=== PATIENT | male | born 1945 | race Two or more races ===

== ENCOUNTER 2020-11-10 10:22 | Inpatient (IN) | payer OTHER ==
[~2020-11-10] VITALS: Ht 180.3 cm; Wt 104.3 kg
[2020-11-10] MEDS ORDERED: TENORMIN25 MG PO (10:32)
[2020-11-10] MEDS ORDERED: CHILDREN'S ASPI81 MG PO (10:33)
[2020-11-10] MEDS ORDERED: ZYLOPRIM300 MG PO (10:34)
[2020-11-10] MEDS ORDERED: ATORVASTATIN CA40 MG PO (10:34)
[2020-11-10] MEDS ORDERED: LIPOFEN50 MG PO (10:35)
[2020-11-10] MEDS ORDERED: ZESTRIL10 M1 PO (10:35)
== END 2020-11-12 13:25 | disposition home or self-care (01) | DRG 346 ==
LOC: ER 10:22 → MEDI 17:00 → SURG 17:00
PROVIDERS: Colon & Rectal Surgery; ADMIT Internal Medicine; ATTEND Internal Medicine
PROC: 0D9P8ZZ Drainage of Rectum, Via Natural or Artificial Opening Endoscopic (ICD-10-PCS; principal; 2020-11-11 18:00)
DX: K61.1 Rectal abscess (principal); I10 Essential (primary) hypertension; Z20.822 Contact with and (suspected) exposure to COVID-19

== ENCOUNTER 2024-08-31 12:36 | Inpatient (IN) | payer OTHER ==
[~2024-08-31] VITALS: Ht 177.8 cm; Wt 89.8 kg
[~2024-08-31 12:36] MED LIST: ATORVASTATIN CA40 MG PO; CHILDREN'S ASPI81 MG PO; LIPOFEN50 MG PO; TENORMIN25 MG PO; ZESTRIL10 M1 PO; ZYLOPRIM300 MG PO
[2024-08-31] MEDS ORDERED: TAGRISSO80 MG PO (13:09)
[2024-08-31] MEDS ORDERED: TENORMIN100 M1 PO (13:10)
[2024-08-31] MEDS ORDERED: OXYCONTIN10 M1 PO (13:10)
--- NOTE | 2024-08-31 13:12 | NUR ---
SE RECIBE PACIENTE ALERTA Y ORIENTADO X3 QUIEN REFIERE DOLOR EN EL AREA ANAL RELACIONADO A OLIVA FISURA ANAL QUE NO ES LA PRIMERA VEZ QUE LE OCURRE. SE MIDEN S/V A PACIENTE Y SE UBICA BISMARK EN PASILLO.
[2024-08-31] MEDS ORDERED: PIPERACILLIN/TAZOBACTAM SODIUM 3.375 GM VIAL IV ONE (13:30)
[2024-08-31] MEDS ORDERED: 0.9 % SODIUM CHLORIDE 1,000 ML IV SCH ×2 (13:30→18:30)
[2024-08-31 14:26] LABS: EOS # 0.01 (0.04-0.54); EOS % 0.5 % (0.7-7.0); LYMPH # 0.48 (1.18-3.74); LYMPH % 23.6 % (19.3-53.1); MEAN CORPUSCULAR HEMOGLOBIN 29.3 pg (25.6-32.2); MONO # 0.31 (0.24-0.82); NEUT # 1.17 (1.56-6.13); NEUT % 57.6 % (34.0-71.1); RED BLOOD COUNT 2.59 M/uL (4.63-6.08)
[2024-08-31 14:28] LABS: HEMATOCRIT 23.9 % (40.1-51.0); MONO % 15.3 % (4.7-12.5)
--- NOTE | 2024-08-31 14:28 | NUR ---
SE ORIENTA A PACIENTE SOBRE TX MEDICO Y EL MISMO REFIERE ENTENDER Y ACEPTAR AL. SE PROCEDE A CANALIZAR AL PACIENTE BAJO MEDIDAS ASEPTICAS Y ADMINISTRAR MEDICAMENTO CLAUDIA ORDEN MEDICA BAJO MEDIDAS ASEPTICAS.
[2024-08-31 14:30] LABS: HEMOGLOBIN 7.6 g/dL (13.7-17.5)
[2024-08-31 14:31] LABS: PLATELET COUNT 113 K/uL (163-369)
[2024-08-31 15:07] LABS: ALBUMIN 3.2 gm/dL (3.4-5.0); BILIRUBIN TOTAL 0.38 mg/dL (0.3-1.2); CALCIUM 8.5 mg/dL (8.5-10.1); CREATININE SERUM 2.09 mg/dL (0.70-1.30); GFR 31.03; GLOBULINA 4.1 G/DL (2.4-3.5); POTASSIUM 4.77 mEq/L (3.5-5.1); TOTAL PROTEIN 7.3 gm/dL (6.4-8.2)
[2024-08-31 15:48] LABS: PH,URINE 8.5 (5.0-8.0); URINE APPEARANCE Clear; URINE BILIRRUBIN Negative (NEGATIVE); URINE BLOOD NHT; URINE COLOR Yellow; URINE GLUCOSE Negative (NEGATIVE); URINE KETONE Trace (NEGATIVE); URINE LEUKOCYTE Negative; URINE NITRATE Negative
[2024-08-31 15:52] LABS: URINE BACTERIA 70.9 uL (0.0-1933); URINE EPITHELIAL CELLS 4.8 uL (0.0-38.8); URINE RBC 25.7 uL (0.0-20.8); URINE WBC 6.4 uL (0.0-23.2)
[2024-08-31 16:14] LABS: URINE CAST 1.17 uL (0.0-1.40); URINE PROTEIN 300 (NEGATIVE)
[2024-08-31] MEDS ORDERED: PIPERACILLIN/TAZOBACTAM SODIUM 2.25 GM in DEXTROSE 5 % IN WATER 50 ML IV SCH (18:18)
[2024-08-31] MEDS ORDERED: AMLODIPINE BESYLATE 5 MG TABLET PO SCH (18:29)
[2024-08-31] MEDS ORDERED: ACETAMINOPHEN 325 MG TABLET PO PRN (18:30)
[2024-08-31] MEDS ORDERED: MORPHINE SULFATE 2 MG/ML SYRINGE IV PRN (18:30)
[2024-08-31] MEDS ORDERED: hydrALAZINE HCL 20 MG VIAL IV PRN (18:30)
[2024-09-01 08:00] VITALS: BP 156/71; O2SAT 98
[2024-09-01 11:49] VITALS: O2SAT 98
[2024-09-01 17:29] VITALS: BP 136/95; O2SAT 99
[2024-09-01 22:26] LABS: INR 1.16; PROTHROMBIN TIME 12.5 SECONDS (9.0-11.5)
[2024-09-02] VITALS (7 sets, daily range): BP systolic 137–197; BP diastolic 76–80; O2SAT 96–99
[2024-09-02 09:27] LABS: BASO % 0.2 % (0.1-1.2); EOS # 0.06 (0.04-0.54); EOS % 1.3 % (0.7-7.0); LYMPH # 0.82 (1.18-3.74); LYMPH % 17.2 % (19.3-53.1); MEAN CORPUSCULAR HEMOGLOBIN 29.2 pg (25.6-32.2); MONO # 0.69 (0.24-0.82); NEUT # 3.14 (1.56-6.13); NEUT % 65.6 % (34.0-71.1); RED BLOOD COUNT 2.95 M/uL (4.63-6.08); RED CELL DISTRIBUTION WIDTH 16.7 % (11.6-14.4)
[2024-09-02 09:28] LABS: MONO % 14.4 % (4.7-12.5)
[2024-09-02 09:29] LABS: HEMATOCRIT 26.7 % (40.1-51.0); HEMOGLOBIN 8.6 g/dL (13.7-17.5); PLATELET COUNT 82 K/uL (163-369)
[2024-09-02] MEDS ORDERED: GABAPENTIN 300 MG CAPSULE PO PRN (13:30)
[2024-09-02] MEDS ORDERED: MORPHINE SULFATE 4 MG/ML CARTRIDGE IV PRN (13:30)
[2024-09-03 01:58] VITALS: BP 157/71; O2SAT 94
[2024-09-03 06:47] LABS: BASO % 0.2 % (0.1-1.2); EOS # 0.08 (0.04-0.54); EOS % 1.2 % (0.7-7.0); HEMATOCRIT 27.8 % (40.1-51.0); HEMOGLOBIN 9.1 g/dL (13.7-17.5); LYMPH # 1.12 (1.18-3.74); LYMPH % 17.2 % (19.3-53.1); MEAN CORPUSCULAR HEMOGLOBIN 29.8 pg (25.6-32.2); MONO # 0.88 (0.24-0.82); NEUT # 4.27 (1.56-6.13); NEUT % 65.7 % (34.0-71.1); RED BLOOD COUNT 3.05 M/uL (4.63-6.08); RED CELL DISTRIBUTION WIDTH 16.8 % (11.6-14.4)
[2024-09-03 07:01] LABS: MONO % 13.5 % (4.7-12.5); PLATELET COUNT 73 K/uL (163-369)
[2024-09-03 08:00] VITALS: BP 170/77; O2SAT 99
== END 2024-09-03 12:36 | disposition home or self-care (01) | DRG 394 ==
LOC: ER 12:36 → SURH 19:44
PROVIDERS: Emergency Medicine; Surgery; ADMIT Student in an Organized Health Care Education/Training Program; ATTEND Student in an Organized Health Care Education/Training Program
PROC: BW21ZZZ Computerized Tomography (CT Scan) of Abdomen and Pelvis (ICD-10-PCS; 2024-08-31)
PROC: BW24ZZZ Computerized Tomography (CT Scan) of Chest and Abdomen (ICD-10-PCS; 2024-08-31)
PROC: 4A12X4Z Monitoring of Cardiac Electrical Activity, External Approach (ICD-10-PCS; 2024-09-01)
PROC: 30233N1 Transfusion of Nonautologous Red Blood Cells into Peripheral Vein, Percutaneous Approach (ICD-10-PCS; 2024-09-01)
PROC: 0J9B0ZZ Drainage of Perineum Subcutaneous Tissue and Fascia, Open Approach (ICD-10-PCS; principal; 2024-09-03)
DX: K61.0 Anal abscess (principal); C78.01 Secondary malignant neoplasm of right lung; D61.818 Other pancytopenia; N17.9 Acute kidney failure, unspecified; D64.9 Anemia, unspecified; I10 Essential (primary) hypertension; E78.5 Hyperlipidemia, unspecified; B96.1 Klebsiella pneumoniae [K. pneumoniae] as the cause of diseases classified elsewhere; B96.20 Unspecified Escherichia coli [E. coli] as the cause of diseases classified elsewhere